=== PATIENT | male | born 1955 | race Caucasian/White ===

== ENCOUNTER → 2018-05-02 | Outpatient (CLI) | payer MEDICARE, OTHER ==
[~2018-05-02] MED LIST: ASPI81EC PO; ESOM20 PO; FLUT.05NI; VITS/SUPPS
== END | disposition home or self-care (01) ==
LOC: PLD 12:13 → LAB SHORT 12:13
DX: D22.5 Melanocytic nevi of trunk (principal)
CPT/HCPCS: 88305

== ENCOUNTER → 2022-10-05 | Outpatient (CLI) | payer MEDICARE, OTHER | LOC: LAB SHORT 17:40 → LAB 17:40 | DX: R30.0 Dysuria (principal) | CPT/HCPCS: 87086 ==